=== PATIENT | male | born 1965 | race Caucasian/White ===

== ENCOUNTER 2022-06-30 07:54 | Outpatient (CLI) | payer OTHER, SELFPAY | END 2022-06-30 07:55 | disposition home or self-care (01) | LOC: OP CLINIC 07:55 | PROVIDERS: PCP Family Medicine; Visit Provider Surgery | DX: Z12.11 Encounter for screening for malignant neoplasm of colon (principal); K63.5 Polyp of colon; K57.30 Diverticulosis of large intestine without perforation or abscess without bleeding; Z86.010 Personal history of colon polyps | CPT/HCPCS: 45385; 88305; 99153; J2250; J3010 ==

== ENCOUNTER 2022-08-10 12:42 | Outpatient (CLI) | payer OTHER, SELFPAY ==
--- NOTE | 2022-08-10 13:00 | CRLHL7_ITS ---
For Patients: As a result of the Century Cures Act, medical imaging exams and procedure reports are released immediately into your electronic medical record. You may view this report before your referring provider. If you have questions, please contact your health care provider. INDICATION: Closed head injury. TECHNIQUE: Noncontrast CT images acquired through the brain. COMPARISON: None. FINDINGS: The ventricles and sulci are within normal limits for patient age. No mass effect or midline shift. The laguna-white differentiation is maintained. No acute intracranial hemorrhage or pathologic extra-axial fluid collection. Atherosclerotic calcifications in the carotid siphons and right vertebral artery. The calvarium is intact. The globes are symmetric. The visualized paranasal sinuses and mastoid air cells are clear. IMPRESSION: No acute intracranial hemorrhage or mass effect. Please note that all CT scans at this facility use dose modulation, iterative reconstruction, and/or weight-based dosing when appropriate to reduce radiation dose to as low as reasonably achievable. Dictated by Kvng Conley MD @ 08/10/2022 5:33:45 PM (Electronically Signed)
== END 2022-08-10 12:43 | disposition home or self-care (01) ==
PROVIDERS: PCP Family Medicine; Visit Provider Family Medicine
DX: S09.90XA Unspecified injury of head, initial encounter (principal)
CPT/HCPCS: 70450

== ENCOUNTER 2023-01-19 06:59 | Outpatient (CLI) | payer OTHER, SELFPAY ==
--- NOTE | 2023-01-19 07:15 | MR_ITS ---
[facility] [address] [facility] [address] Phone:?[phone] Fax:?[phone] Referring Physician Information: Franck Jesnen M.D. [address] [facility] [address] Phone:?[phone] Fax:?[phone] Patient:Arleen Saeed D.O.B:?1965 Sex:?Male Phone:?[phone] [facility] MRN:?[id number] Exam Date:?01/19/2023 EXAM: MRI of the LEFT SHOULDER, without contrast CLINICAL: Male, 58 years old, with bilateral shoulder pain. INDICATION: Evaluate for tear versus other shoulder derangement etiology. PRIOR SURGERY: None reported. PLAIN FILMS: None available. COMPARISONS: No prior MRIs available. An MRI of the contralateral right shoulder was also performed and reported separately on this same date. TECHNICAL: Using a 1.5T MR scanner and a localizing shoulder surface coil: 3.0 mm?coronal obliques: PD, T2, STIR 3.0 mm?sagittal obliques: PD, T2 3.0 mm?axials: PD, T2 SEDATION: None. CONTRAST: None. IMPRESSION: 1. Massive full-thickness full-width with adjacent and full-thickness near full- width indicators tendon tears with relatively marked tendon retraction although relatively mild muscle atrophy at this time. 2. Marked attenuation perhaps element of full-thickness attenuation/tear of the distal superior subscapularis tendon associated with more prominent moderate subscapularis muscle atrophy. 3. Suspected residua of proximal biceps tendon tear and distal retraction. 4. Perhaps element of humeral head chondral thinning without convincing more prominent osteoarthritis. 4. Mild chronic acromioclavicular joint osteoarthritis. FINDINGS: Glenohumeral joint: Effusion/cyst: Physiologic femur joint effusion although prominent fluid in the subacromial-subdeltoid space associated with the full-thickness rotator cuff tear detailed below. No paralabral ganglion cyst. Articular cartilage: Humeral head: Perhaps some smooth-margined chondral thinning of the medial/superomedial humeral head but without subjacent marrow edema or marginal osteophyte formation. Glenoid: No osteochondral abnormalities. Loose bodies: No demonstrable loose bodies. Inferior glenohumeral ligament/axillary recess: The axillary recess is normal in thickness and signal. No evidence of adhesive capsulitis or capsuloligamentous injury. Labrum: Irregularity and attenuation of the anterior anterosuperior labrum although without convincing more well-defined linear tear. The posterior labrum is intact. Bones: Proximal humerus: Cortical irregularity of the greater tuberosity and humeral sulcus underlies distal insertional rotator cuff tear detailed below. Also mild cortical irregularity, slight hyperostosis and minimal subchondral cyst of the lesser tuberosity underlies distal insertional subscapularis tendinopathy detailed below. The proximal humerus is otherwise intact. No humeral Hill-Sachs or reverse Hill- Sachs lesion/impaction or contusion. Glenoid: No fracture or marrow edema/pathology. No osseous Bankart lesion. Coracoacromial arch: Acromion morphology: Type I versus slight type II acromion without defined subacromial spur/enthesophyte. No mesoacromion or preacromion. Acromiohumeral space: Markedly narrowed at a minimum of 2 mm predominantly secondary to proximal migration of the humeral head associated with the massive full-thickness rotator cuff tear detailed below. Coracohumeral space: Within normal limits. Acromioclavicular joint: Joint: Mild degenerative hypertrophy of the acromioclavicular joint contribute extends superiorly although without pathologic inferior hypertrophy. Adjacent small subchondral cysts of the acromial and clavicular facet. Ligaments: Coracoclavicular ligaments are intact. Bursae: Subacromial-subdeltoid: Fluid in the subacromial space reflects accumulation associated with the full-thickness rotator cuff tear discussed below. Subcoracoid: No convincing subcoracoid bursal thickening/bursitis. Rotator cuff and muscles/tendons: Supraspinatus-infraspinatus: Full-thickness full-width supraspinatus tendon tear and full-thickness near full-width infraspinatus tendon tear reflecting massive full-thickness rotator cuff tear is accompanied by an approximately 4-4.5 cm of proximal tendon retraction to level just medial to the superior humeral head (coronal images 23-9; sagittal images 20-7). Relatively mild decreased bulk of subcutaneous and intermedius muscles with relatively minor Goutallier stage 1-2 fatty infiltration. Teres minor: No tendinopathy, tear or atrophy. In fact perhaps mild compensatory hypertrophy of the teres minor muscle. Subscapularis: Marked chronic attenuation of deep surface into intrasubstance fibers of the distal superior into mid subscapularis tendon difficult to exclude some full-thickness attenuation superiorly, accompanied by moderate decreased bulk and pronounced Goutallier stage 2-3 fatty infiltration of the superior subscapularis muscle belly (axial images 14-21). Deltoid: No strain or atrophy. Biceps tendon, long head: The biceps tendon is not convincingly visualized at the level of the rotator cuff interval and bicipital focus, suspect for residual of proximal rupture and distal retraction. Axilla: No axillary masses or abnormally enlarged lymphadenopathy. [facility] Electronically signed on 01/20/2023 5:07:00 PM by Marky Gleason M.D.
--- NOTE | 2023-01-19 08:15 | MR_ITS ---
[facility] [address] [facility] [address] Phone:?[phone] Fax:?[phone] Referring Physician Information: Franck Jensen M.D. [address] [facility] [address] Phone:?[phone] Fax:?[phone] Patient:Arleen Saeed D.O.B:?1965 Sex:?Male Phone:?[phone] [facility] MRN:?[id number] Exam Date:?01/19/2023 EXAM: MRI of the RIGHT SHOULDER, without contrast CLINICAL: Male, 58 years old, with bilateral shoulder pain. INDICATION: Evaluate for tear versus other shoulder derangement etiology. PRIOR SURGERY: None reported. PLAIN FILMS: None available. COMPARISONS: No prior MRIs available. An MRI of the contralateral left shoulder was also performed and reported separately on this same date. TECHNICAL: Using a 1.5T MR scanner and a localizing shoulder surface coil: 3.0 mm?coronal obliques: PD, T2, STIR 3.0 mm?sagittal obliques: PD, T2 3.0 mm?axials: PD, T2 SEDATION: None. CONTRAST: None. IMPRESSION: 1. Possibly subacute, but perhaps more likely chronic residua of full-thickness full-width attenuation/tear of the supraspinatus tendon with up to 2 cm of proximal retraction and mild muscle atrophy. 2. Extension of deep surface attenuation into the infraspinatus tendon without full-thickness tear, with mild muscle atrophy. 3. Marked chronic-appearing attenuation of the subscapularis tendon without definite complete tear and only mild muscle atrophy. 4. Associated intermediate towards late stage biceps jinny lesion without full- thickness rupture. 5. Moderate narrowing of acromiohumeral distance. A secondary to proximal migration of the humeral head. No inferior AC joint artery. 6. MR appearance borderline abnormal for adhesive capsulitis which may be further clinically correlated/excluded. 7. Mild acromiohumeral joint degenerative change without pathologic inferior hypertrophy. FINDINGS: Glenohumeral joint: Effusion/cyst: Minimal glenohumeral joint effusion. No paralabral ganglion cyst. Articular cartilage: Humeral head: No osteochondral abnormalities. Glenoid: Smooth-margined chondral thinning of the superior glenoid without subjacent marrow edema. Loose bodies: No demonstrable loose bodies. Inferior glenohumeral ligament/axillary recess: Borderline abnormal thickening and questioned slight pericapsular edema of the inferior folds of the axillary recess, MR appearance borderline abnormal for that which could be associated with adhesive capsulitis (coronal STIR & PD series 4 & 5, images 20-14). Labrum: No labral tears. Bones: Proximal humerus: Slight cortical irregularity of the greater tuberosity underlies distal insertional rotator cuff tear detailed below. The proximal humerus is otherwise intact. No humeral Hill-Sachs or reverse Hill- Sachs lesion/impaction or contusion. Glenoid: No fracture or marrow edema/pathology. No osseous Bankart lesion. Coracoacromial arch: Acromion morphology: Mild type II acromion without defined subacromial spur/enthesophyte. No mesoacromion or preacromion. Acromiohumeral space: Moderately narrowed at a minimum of 3 mm which appears predominantly secondary to slight to mild proximal migration of the humeral head associated with the rotator cuff attenuation and tear detailed below. Coracohumeral space: Within normal limits. 10 mm bony distance. 18 mm coracoid overlap. Acromioclavicular joint: Joint: Small subchondral cyst of the acromial facet associated with some chondral thinning, but without pathologic inferior hypertrophy. Ligaments: Coracoclavicular ligaments are intact. Bursae: Subacromial-subdeltoid: Fluid in the subacromial space reflects accumulation associated with the full-thickness rotator cuff tear discussed below. Subcoracoid: No convincing subcoracoid bursal thickening/bursitis. Rotator cuff and muscles/tendons: Supraspinatus: Chronic distal supraspinatus attenuation with full-thickness full-width attenuated tear measuring up to approximately 2 x 2 cm in greatest AP and ML dimensions, respectively (coronal images 15-10; sagittal images 20-5). Associated relatively mild decreased muscle bulk and mild Goutallier stage 2 fatty infiltration. Infraspinatus: Chronic-appearing attenuation extends into adjacent anterior to mid infraspinatus tendon without convincing defined of full-thickness attenuation/tear. Mild decreased infraspinatus muscle bulk and mild Goutallier stage 2 fatty infiltration. Teres minor: No tendinopathy, tear or atrophy. In fact there appears compensatory hypertrophy of the teres minor muscle. Subscapularis: Moderate towards marked chronic-appearing tendinosis and attenuation of the subscapularis tendon without convincing defined full- thickness tear but compromising a significant portion of its lesser tuberosity insertion (axial images 17-20). Deltoid: No strain or atrophy. Biceps tendon, long head: Medial dislocation of the long head of biceps tendon associated with the marked subscapularis attenuation but without rupture. Axilla: No axillary masses or abnormally enlarged lymphadenopathy. [facility] Electronically signed on 01/20/2023 3:44:00 PM by Marky Gleason M.D.
== END 2023-01-19 07:00 | disposition home or self-care (01) ==
LOC: MRI 07:00
PROVIDERS: PCP Family Medicine; Visit Provider Family Medicine
DX: M25.511 Pain in right shoulder (principal); M75.101 Unspecified rotator cuff tear or rupture of right shoulder, not specified as traumatic; M75.01 Adhesive capsulitis of right shoulder; M25.512 Pain in left shoulder; S46.812A Strain of other muscles, fascia and tendons at shoulder and upper arm level, left arm, initial encounter; M19.012 Primary osteoarthritis, left shoulder; M75.102 Unspecified rotator cuff tear or rupture of left shoulder, not specified as traumatic; S46.222A Laceration of muscle, fascia and tendon of other parts of biceps, left arm, initial encounter
CPT/HCPCS: 73221

== ENCOUNTER 2023-03-16 08:10 | Outpatient (CLI) | payer OTHER, SELFPAY ==
[2023-03-16 13:49] LABS: Chloride* 105 mmol/L (96-114); Sodium* 139 mmol/L (135-149)
[2023-03-16 13:51] LABS: Creatinine* 1.1 mg/dL (0.5-1.5); Estimated Glomerular Filt Rate 77 ml/min
[2023-03-16 13:52] LABS: Alanine Aminotransferase* 42 U/L (4-50); Anion Gap 8 mEq/L (7-15); Blood Urea Nitrogen* 19 mg/dL (7-30); Calcium* 9.2 mg/dL (8.4-10.6); Carbon Dioxide* 26 mmol/L (20-32); Glucose* 81 mg/dL (60-115)
== END 2023-03-16 08:11 | disposition home or self-care (01) ==
PROVIDERS: PCP Family Medicine; Visit Provider Family Medicine
DX: M10.9 Gout, unspecified (principal); I10 Essential (primary) hypertension; E78.2 Mixed hyperlipidemia; R07.9 Chest pain, unspecified; Z12.5 Encounter for screening for malignant neoplasm of prostate
CPT/HCPCS: 80048; 80061; 84153; 84460

== ENCOUNTER 2023-03-23 13:44 | Outpatient (CLI) | payer OTHER, SELFPAY ==
--- NOTE | 2023-03-23 14:30 | W.PM.STED ---
Stress Test Note Date Date Seen: 03/23/23 Date of test: 03/23/23 Providers Primary care provider: Franck Jensen Stress test physician: Danielle Teran Stress Test Note Stress test ordered: Stress Echo Indication for test: Chest pain Stress test medicine: None Results discussion: Resting EKG: Sinus rhythm, 67 beats per minute. Resting blood pressure: 138/90 Stress test: Patient was exercised on the treadmill following standard Hilario protocol. Patient was able to exercise to 9 minutes 32 seconds, achieving 11.1 Mets. Exercise was terminated due to patient reaching maximum exercise capacity. He had a maximum heart rate during exercise of 152 beats per minute which was 111% of a calculated target heart rate of 136. Rate pressure product was 25,560. He went into the stress test with baseline chest discomfort that he had been having. There were no changes during exercise, did not feel at worsened at all. There was 1 single PVC at 2 minutes 49 seconds at stage III which was 8 minutes 49 seconds into the stress test. EKG was printed of this. Otherwise no arrhythmia, no ischemic change noted. Patient did have hypertensive response during exercise but notably did not take his losartan today. Impression: Subjectively negative, objectively negative EKG portion of this stress test. Follow up suggested: Patient is discharged from stress test in stable condition. He is aware that the echo images have to be read by Cardiology, his primary will get a report once the stress test has been formalized by Cardiology.
[2023-03-23 14:36] VITALS: BP 153/101; PULSE 87; RESP 18
== END 2023-03-23 13:45 | disposition home or self-care (01) ==
LOC: STRESS 13:46
PROVIDERS: PCP Family Medicine; Visit Provider Family Medicine
DX: R07.89 Other chest pain (principal)
CPT/HCPCS: 93016; 93325; 93351

== ENCOUNTER 2024-07-03 13:47 | Outpatient (CLI) | payer OTHER, SELFPAY | END 2024-07-03 13:48 | disposition home or self-care (01) | LOC: RAD 13:47 | PROVIDERS: PCP Family Medicine; Visit Provider Family Medicine | DX: I10 Essential (primary) hypertension (principal); I34.0 Nonrheumatic mitral (valve) insufficiency | CPT/HCPCS: 93306 ==

== ENCOUNTER 2025-04-05 10:58 | Outpatient (CLI) | payer OTHER, SELFPAY | END 2025-04-05 10:59 | disposition home or self-care (01) | PROVIDERS: PCP Family Medicine; Visit Provider Family Medicine | DX: I10 Essential (primary) hypertension (principal); E78.2 Mixed hyperlipidemia | CPT/HCPCS: 80048; 80061; 83735 ==

== ENCOUNTER 2025-04-18 13:50 | Outpatient (CLI) | payer OTHER, SELFPAY ==
--- NOTE | 2025-04-18 14:00 | CRLHL7_ITS ---
For Patients: As a result of the Century Cures Act, medical imaging exams and procedure reports are released immediately into your electronic medical record. You may view this report before your referring provider. If you have questions, please contact your health care provider. INDICATION: Anesthesia of skin. TECHNIQUE: Lumbar spine MRI was performed without the administration of intravenous contrast. COMPARISON: : None. FINDINGS: There is normal lumbar alignment. No STIR hyperintensity to suggest an acute fracture or ligamentous injury. The vertebral body heights are maintained. Multilevel degenerative changes including disc space height loss, endplate, and bone marrow changes. Moderate/severe facet joint hypertrophy at L4-L5 including a left L4-L5 facet joint effusion with edema in the periauricular soft tissues. There is mild marrow edema in the left L4-L5 articulating processes that is likely reactive. The visualized spinal cord and cauda equina nerve roots are within normal limits. Significant findings by level: T12-L1: No significant spinal canal or neural foraminal narrowing. L1-L2: No significant spinal canal or neural foraminal narrowing. L2-L3: No significant spinal canal or neural foraminal narrowing. L3-L4: No significant spinal canal or neural foraminal narrowing. L4-L5: Mild spinal canal stenosis and mild neural foraminal stenosis bilaterally with possible abutment of the exiting L4 nerve roots due to disc space height loss, disc bulge, and facet joint hypertrophy. L5-S1: No significant spinal canal or neural foraminal narrowing. A couple small simple appearing cysts in left kidney. IMPRESSION: 1. No evidence of acute fracture or malalignment. 2. Left L4-L5 facet joint synovitis. 3. At L4-L5, mild spinal canal stenosis and mild neural foraminal stenosis bilaterally with possible abutment of the exiting L4 nerve roots. 4. No significant spinal canal narrowing. Dictated by Aric Sheehan MD @ 04/20/2025 11:05:25 AM (Electronically Signed)
== END 2025-04-18 13:51 | disposition home or self-care (01) ==
LOC: MRI 13:51
PROVIDERS: PCP Family Medicine; Visit Provider Family Medicine
DX: R20.0 Anesthesia of skin (principal); M65.88 Other synovitis and tenosynovitis, other site; M48.061 Spinal stenosis, lumbar region without neurogenic claudication
CPT/HCPCS: 72148